=== PATIENT | female | born 1960 | race Caucasian/White ===

== ENCOUNTER → 2019-05-27 | Outpatient (CLI) | payer OTHER | END | disposition home or self-care (01) | LOC: PLD 07:32 → LAB SHORT 07:32 | DX: D36.7 Benign neoplasm of other specified sites (principal) | CPT/HCPCS: 88173 ==

== ENCOUNTER 2024-07-30 06:40 | Day surgery (SDC) | payer OTHER ==
[~2024-07-30] VITALS: Ht 160 cm; Wt 61.6 kg
[2024-07-30] VITALS (12 sets, daily range): BP systolic 122–167; BP diastolic 73–101
[~2024-07-30 06:40] MED LIST: FAMO20; Lactated Ringer's 1,000 ML IV SCH
[2024-07-30] MEDS ORDERED: propofoL 20 ML IV ONE (07:05)
[2024-07-30] MEDS ORDERED: Benzocaine Oral Spray 0.5ML UD ONE (07:05)
--- NOTE | 2024-07-30 07:10 | NUR ---
07/30/24 0710 Ritchie Garcia HISTORY, CHART, MEDICATIONS AND ALLERGIES REVIEWED BEFORE START OF PROCEDURE. PATIENT CONFIRMS NPO STATUS AND AGREES WITH SCHEDULED PROCEDURE. 3-LEAD EKG REVIEWED WITH PHYSICIAN PRIOR TO START OF PROCEDURE. MONITOR INTACT WITH CONTINUOUS PULSE OXIMETRY,CAPNOGRAPHY, 3-LEAD EKG, INTERMITTENT BP. SUPPLEMENTAL O2 TO BE TITRATED THROUGHOUT PROCEDURE TO MAINTAIN O2 SATURATION ABOVE 90%. PATIENT DETERMINED TO BE ASA APPROPRIATE FOR PROPOFOL SEDATION PRIOR TO START OF PROCEDURE BY
--- NOTE | 2024-07-30 08:05 | NUR ---
PT TOLERATING PO FLUIDS WELL. Discharge instructions reviewed with patient. Patient verbalizes understanding. Copy given to patient to take home. Patient States Post-Procedure ride home has been arranged.
--- NOTE | 2024-07-30 08:13 | NUR ---
Patient up to Ambulate independently. Gait steady.
--- NOTE | 2024-07-30 08:15 | NUR ---
Discharged via wheelchair to private car for ride home.
== END 2024-07-30 08:16 | disposition home or self-care (01) ==
LOC: ORSCMMR 06:40 → ORD 07:30 → ORSCMMR 08:16
PROVIDERS: Internal Medicine Gastroenterology
PROC: 0DB58ZX Excision of Esophagus, Via Natural or Artificial Opening Endoscopic, Diagnostic (ICD-10-PCS; principal; 2024-07-30 07:30)
PROC: 0DB48ZX Excision of Esophagogastric Junction, Via Natural or Artificial Opening Endoscopic, Diagnostic (ICD-10-PCS; principal; 2024-07-30 07:30)
DX: K21.9 Gastro-esophageal reflux disease without esophagitis (principal); K44.9 Diaphragmatic hernia without obstruction or gangrene
CPT/HCPCS: 88305; 88312; A9270; J2704; J7120